=== PATIENT | male | born 1955 | race Caucasian/White ===

== ENCOUNTER 2020-05-04 01:10 | Outpatient (CLI) | payer BC, SELFPAY ==
[2020-05-04 18:02] LABS: SARS-CoV-2 RNA PCR Negative
== END 2020-05-04 01:11 | disposition home or self-care (01) ==
LOC: ANHCOVIDDT 01:11
PROVIDERS: PCP Family Medicine; Visit Provider Internal Medicine Gastroenterology
DX: Z01.812 Encounter for preprocedural laboratory examination (principal); Z20.828 Contact with and (suspected) exposure to other viral communicable diseases
CPT/HCPCS: 87635; C9803; U0003

== ENCOUNTER 2020-05-06 02:10 | Day surgery (SDC) | payer BC, SELFPAY ==
[2020-04-30 10:36] VITALS: BMI 24.6
[2020-05-06 08:54] VITALS: BP 123/77; PULSE 64; RESP 18; TEMP 36.6; O2SAT 100; BMI 24.0
--- NOTE | 2020-05-06 09:04 | P.HP_ITS ---
History of Present Illness History of Present Illness Consent: Risks, benefits, and alternatives have been discussed and questions answered. Patient agrees to proceed with procedure. Chief complaint: Family Hx Of Colon CA Narrative: Saturnino Oviedo is a 64 year old W male referred for screening colonoscopy secondary to a family history of colon polyps in his father and colon cancer in paternal grandfather. Patient last colonoscopy was 5 years ago no polyps were seen at that time. Patient is asymptomatic. He does have external hemorrhoids was evaluated Col[facility] Surgical Department at [facility] Past Medical History Medical History (Updated 05/06/20 @ 09:06 by Nate Cuellar MD) Left fibular fracture Surgical History Surgical History (Updated 05/06/20 @ 09:06 by Nate Cuellar MD) S/P right knee arthroscopy Family History Family History (Updated 04/03/14 @ 07:13 by DOCTOR UNKNOWN) Father Family history of malignant neoplasm Social History Social History (Updated 04/15/20 @ 13:59 by Bettye Fields) Smoking status: Never smoker Alcohol intake: current Drinks per week: 2 Alcohol use details: BEERS Substance use: never Substance use type: does not use Living arrangements: with family Gender identity (if verbalized by the patient): Male Spiritual care concerns: No Meds Home Medications and Allergies Home Medications Medication Instructions Recorded Confirmed Type hydrocortisone 2.5 % topical cream 1 applic RECTAL DAILY PRN #28 gm 04/29/20 05/06/20 Rx with perineal applicator Allergies Allergy/AdvReac Type Severity Reaction Status Date / Time No Known Allergies Allergy Verified 05/06/20 08:52 Vital Signs Vital Signs - 24 hr 05/06/20 08:54 Temperature 36.6 C Pulse Rate 64 Respiratory Rate 18 Blood Pressure 123/77 Pulse Oximetry 100 Exam Const: Orientation/consciousness: patient oriented x3 Resp: Auscultation: clear to auscultation bilaterally Cardio: Rate: regular rate Rhythm: regular rhythm Heart sounds: no murmurs GI: GI Palp: Yes Soft to palpation, No Tenderness to palpation present (GI), Yes No hepatosplenomegaly present and No Palpable mass present Auscultation: normal bowel sounds Neuro: General: patient oriented x3 and no focal motor deficits Extrem: General: no pedal edema Assessment and Plan Additional Plan screening colonoscopy in high risk patient
--- NOTE | 2020-05-06 09:06 | WPDANESEPPF ---
Anes - Initial Pre Proc Eval Procedure: Operation Date: 05/06/20 10:00 Proposed Procedures p Screening Colonoscopy - Nate Cuellar MD Date/Time: 05/06/20 09:06 Surgeon: Nate Cuellar MD Pre Op Diagnosis: Family Hx Of Colon CA Patient Data Age: 64 Gender: M Height: 6 ft 2 in Weight: 85.1 kg Last Vital Signs Temp 36.6 C 05/06/20 08:54 Pulse 64 05/06/20 08:54 Resp 18 05/06/20 08:54 BP 123/77 05/06/20 08:54 Pulse Ox 100 05/06/20 08:54 Allergies Allergy/AdvReac Type Severity Reaction Status Date / Time No Known Allergies Allergy Verified 05/06/20 08:52 Home Medications Medication Instructions Recorded Confirmed Type hydrocortisone 2.5 % topical cream 1 applic RECTAL DAILY PRN #28 gm 04/29/20 05/06/20 Rx with perineal applicator Patient hx anesthesia problems: none Family hx anesthesia problems: none PMFSH Family History Family History Father Family history of malignant neoplasm Social History Social History Smoking status: Never smoker Alcohol intake: current Drinks per week: 2 Alcohol use details: BEERS Substance use: never Substance use type: does not use Living arrangements: with family Gender identity (if verbalized by the patient): Male Spiritual care concerns: No Anes - Eval Final PreProcedure Day of Procedure 05/06/20 09:06 Patient weight: normal Heart: regular rate and rhythm Lungs: clear to auscultation Airway: Mallampati scale class 1 Neurological: alert and oriented Last oral intake: >/= 8 hours ASA classification: II Emergent: no Anesthetic plan: proceed Anesthesia type and monitoring: general GIVS and standard monitoring Informed Consent: The patient's anesthetic plan and its attendant risks and benefits were discussed with the patient/family/POA. Questions were solicited and answers provided to the satisfaction of the patient/family/POA.
[2020-05-06] MEDS: LACTATED RINGERS 1,000 ML 150 ML IV CONT (09:12)
[2020-05-06] MEDS: SIMETHICONE ORAL SUSPENSION 20 MG/0.3 ML 30 ML BOTTLE 0.6 ML IRRIGATION (10:22)
[2020-05-06 10:31] VITALS: BP 100/80; PULSE 62; RESP 11; O2SAT 99
[2020-05-06 10:41] VITALS: BP 104/70; PULSE 62; RESP 11; O2SAT 99
[2020-05-06 10:51] VITALS: BP 110/72; PULSE 54; RESP 11; O2SAT 98
== END 2020-05-06 11:15 | disposition home or self-care (01) ==
PROVIDERS: PCP Family Medicine; Visit Provider Internal Medicine Gastroenterology
PROC: 0DJD8ZZ Inspection of Lower Intestinal Tract, Via Natural or Artificial Opening Endoscopic (ICD-10-PCS; CPT 45378; principal; 2020-05-06 10:00)
DX: Z12.11 Encounter for screening for malignant neoplasm of colon (principal); K64.4 Residual hemorrhoidal skin tags; K64.2 Third degree hemorrhoids; Z80.0 Family history of malignant neoplasm of digestive organs; Z83.71 Family history of colonic polyps
CPT/HCPCS: 45378; J2704; J7120

== ENCOUNTER 2022-12-11 17:28 | Emergency (ER) | payer MEDICARE, BC, SELFPAY ==
[2022-12-11 17:29] VITALS: BP 126/92; PULSE 63; RESP 18; TEMP 36.6; O2SAT 97
--- NOTE | 2022-12-11 19:18 | ED.GENADULT ---
HPI - General Adult General Chief complaint: Unspecified Stated complaint: splinter below nail Time Seen by Provider: 12/11/22 18:40 History of Present Illness HPI narrative: 67-year-old male presents the emergency department for evaluation of a splinter under his right middle finger. Related Data Allergies Allergy/AdvReac Type Severity Reaction Status Date / Time No Known Allergies Allergy Verified 12/11/22 18:59 Review of Systems Review of Systems: All systems reviewed & are unremarkable except as noted in HPI and below PMFSH Past Medical History Medical History Erectile dysfunction Hemorrhoid Left fibular fracture Surgical History Surgical History S/P right knee arthroscopy Family History Family History Father Family history of malignant neoplasm Social History Social History Smoking status: Never smoker Alcohol intake: current Drinks per week: 2 Alcohol use details: BEERS Substance use: never Substance use type: does not use Living arrangements: with family Occupation/Education: retired Gender identity (if verbalized by the patient): Male Spiritual care concerns: No Exam Narrative: APPEARANCE: Well appearing, no pain, no distress, well-nourished. HEAD: normocephalic, atraumatic. EYES: PERRLA/EOMI, conjunctivae clear. NOSE: Normal no drainage NECK: Supple. No adenopathy, no masses. RESPIRATORY: Airway patent, respirations nonlabored. Clear to auscultation bilaterally, no rales, rhonchi, wheezing. CARDIOVASCULAR: Regular rate and rhythm without murmurs rubs or gallops. ABDOMINAL: Soft, nontender, nondistended, normal bowel sounds MUSCULOSKELETAL: Moves all extremities. Strength/ROM intact, No edema, No calf tenderness. NEURO: Alert. Cranial nerves II through XII intact. Grossly intact SKIN: Warm, dry. Normal Color. Splinter under right middle finger Course Course Emergency Course: Finger was anesthetized and splinter was removed and described in the procedure note. Vital Signs Vital signs: Vital Signs Temperature 97.8 F 12/11/22 17:29 Pulse Rate 63 12/11/22 17:29 Respiratory Rate 18 12/11/22 17:29 Blood Pressure 126/92 H 12/11/22 17:29 Pulse Oximetry 97 12/11/22 17:29 Oxygen Delivery Room Air 12/11/22 17:29 Temperature 97.8 F 12/11/22 17:29 Pulse Rate 63 12/11/22 17:29 Respiratory Rate 18 12/11/22 17:29 Blood Pressure 126/92 H 12/11/22 17:29 Pulse Oximetry 97 12/11/22 17:29 Oxygen Delivery Room Air 12/11/22 17:29 Procedures Foreign Body Removal Foreign Body #1: Time Out Performed: yes Site: right and hand Description of foreign body: other (splinter) Technique: manual removal, removal with forceps and incision made to facilitate removal Confirmed by:: direct visualization Complications: none Post-procedure exam: awake, alert Neurovascular: normal distal pulse Foreign Body Removal Narrative: Area was anesthetized with 1 mL of 1% lidocaine, fingernail was trimmed to approach the splinter and splinter was removed using splinter forceps. Patient tolerated procedure with no complications Medical Decision Making Vital Signs Vital Signs: Vital Signs Temperature 97.8 F 12/11/22 17:29 Pulse Rate 63 12/11/22 17:29 Respiratory Rate 18 12/11/22 17:29 Blood Pressure 126/92 H 12/11/22 17:29 Pulse Oximetry 97 12/11/22 17:29 Oxygen Delivery Room Air 12/11/22 17:29 Temperature 97.8 F 12/11/22 17:29 Pulse Rate 63 12/11/22 17:29 Respiratory Rate 18 12/11/22 17:29 Blood Pressure 126/92 H 12/11/22 17:29 Pulse Oximetry 97 12/11/22 17:29 Oxygen Delivery Room Air 12/11/22 17:29 Discharge Plan Discharge Clinical Imp
[2022-12-11] MEDS: TETANUS,DIPHTHERIA,AC PERTUSSIS ADULT (0.5 ML) BOOSTRIX IM (19:42)
[2022-12-11] MEDS: CEPHALEXIN 250 MG CAPSULE PO (19:43)
== END 2022-12-11 19:54 | disposition home or self-care (01) ==
PROVIDERS: Emergency Provider Emergency Medicine; PCP Family Medicine
DX: S60.452A Superficial foreign body of right middle finger, initial encounter (principal); Z23 Encounter for immunization; W45.8XXA Other foreign body or object entering through skin, initial encounter
CPT/HCPCS: 10120; 90471; 90715; 99283; A9270

== ENCOUNTER 2023-08-09 08:15 | Outpatient (RCR) | payer MEDICARE, BC, SELFPAY ==
--- NOTE | 2023-07-05 08:25 | PTOPEVAL1 ---
Assessment and note entered by Leander Le Evaluation Information Assessment Status Evaluation Diagnosis left shoulder pain Onset 04/06/23 Subjective Information Pt. reports he was hiking in March with a heavy backpack and began noticing pain described in the left shoulder blade. He reports pain is worsened at night while relaxing or with driving. He reports that he does have tingling that develops as well. He notices more of the tingling in the fingertips of both hands. He reports that sitting up at night will alleviate the tingling. 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 He reports that he has not had xray or MRI of the shoulder. He does notice his pain with moving his head to the left and looking up. He reports that his goal is to reduce his shoulder pain. Reported Pain Level Pain Score 1: Self Report Assessment PT Clinical Summary Pt. is a 67 year old male who enters the clinic with left shoulder pain. Pt. objective findings are consistent with cervical nerve root impingement on this date. He currently presents with impaired left cervical rotation and lateral flexion, impaired postural awareness, impaired left u.e. strength and pain. Continued skilled PT is indicated in order to improve these areas to allow for improved comfort with IADL performance. Plan of Care Interventions Electrical Stimulation,Hot Pack/Cold Pack,Manual Therapy,Mechanical Traction,Neuro Re-education, Patient/Caregiver Educati,Therapeutic Activities, Therapeutic Exercise PT Services Indicated Yes Treatment Frequency and 2x/week x 10 visits Duration These treatments will address the objective and functional deficits as defined above. The patient will be advanced safely and appropriately in order for the patient to progress towards his/her prior level of function. Additional exercises will be introduced and as well as a comprehensive home exercise program upon discharge, if needed, ?to ensure carryover of functional gains achieved in the clinic. This treatment plan has been reviewed and agreement upon by the patient.
--- NOTE | 2023-07-05 08:25 | OPREHPOC ---
Outpatient Therapy Plan of Care This is a Multidisciplinary Plan of Care that may contain components documented by all disciplines (PT, OT, and ST.) PT Problem 1 PT Problem #1 Knowledge Deficit PT Goal 1 Goal Independent with a HEP focusing on postural awareness and strength Target Visit 2 PT Problem 2 PT Problem #2 Pain PT Goal 1 Goal Pt. will provide pain reports of 2/10 at worst with performance of all IADL's. Target Visit 10 PT Problem 3 PT Problem #3 Impaired Range of Motion PT Goal 1 Goal Pt. will present with 75 degrees left rotation and 40 degrees left lateral flexion at the c-spine Target Visit 10 PT Problem 4 PT Problem #4 Impaired Strength PT Goal 1 Goal Pt. will present with 4+/5 left tricep strength to improve function with overhead activities. Target Visit 10 PT Problem 5 PT Problem #5 Impaired Functional Mobil PT Goal 1 Goal Pt. will demonstrate less than 5% limitation on the Quick DASH indicating significant funcitonal improvement. Target Visit 10
--- NOTE | 2023-08-09 09:20 | PTOPEVAL1 ---
Assessment and note entered by Leander Le Evaluation Information Assessment Status Discharge Diagnosis left shoulder pain Onset 04/06/23 Subjective Information Pt. reports that the left shoulder pain is much less intense. He has notices some developed numbness in the first 4 fingers of the left hand, which has him concerned. He states that he is happy with his progress, but will meet with his doctor regarding the numbness. He will continue with his HEP at this time. Reported Pain Level Pain Score 1: Self Report Assessment PT Clinical Summary Pt. demonstrates significant improvement in his Quick DASH score. Pt. pain reports are minimal at this time and improvements are noted in strength and ROM. Despite these improvement some radicular symptoms remain in the left u.e. At this time recommend that the pt. return to his doctor to discuss his symptoms and may consider imaging of the c-spine. Plan of Care PT Services Indicated Treatment Frequency and D/C from PT to a HEP and follow up with Bob Carroll regarding cervical radiculopathy. These treatments will address the objective and functional deficits as defined above. The patient will be advanced safely and appropriately in order for the patient to progress towards his/her prior level of function. Additional exercises will be introduced and as well as a comprehensive home exercise program upon discharge, if needed, ?to ensure carryover of functional gains achieved in the clinic. This treatment plan has been reviewed and agreement upon by the patient.
== END 2023-08-09 12:36 | disposition home or self-care (01) ==
LOC: ANHPT 08:15
PROVIDERS: PCP Family Medicine; Visit Provider Family Medicine
DX: M25.512 Pain in left shoulder (principal)
CPT/HCPCS: 97012; 97014; 97110; 97140; 97161; 97530; G0283

== ENCOUNTER 2024-05-13 12:19 | Outpatient (CLI) | payer MEDICARE, BC, SELFPAY ==
--- NOTE | ~2024-05-13 | XR_ITS ---
Left Knee Technique: AP, lateral, and sunrise views were obtained. Clinical History: Pain Findings: No fracture or dislocation is seen. There is medial compartment narrowing with mild tricomp artmental osteophyte formation. Soft tissues are unremarkable. No joint effusion is seen. Impression: Degenerative change, as above. Reviewed, dictated and finalized at location M. Impression: Degenerative change, as above.
--- NOTE | ~2024-05-13 | XR_ITS ---
Right Knee Technique: AP, lateral, and sunrise views were obtained. Clinical History: Pain Findings: No fracture or dislocation is seen. There is mild medial compartment narrowing with mild tr icompartmental osteophyte formation. Soft tissues are unremarkable. No joint effusion is seen. Impression: Degenerative change, as above. Reviewed, dictated and finalized at location M. Impression: Degenerative change, as above.
== END 2024-05-13 12:20 | disposition home or self-care (01) ==
LOC: MICIMG 12:21
PROVIDERS: PCP Family Medicine; Visit Provider Family Medicine
DX: M25.562 Pain in left knee (principal); M25.561 Pain in right knee
CPT/HCPCS: 73562

== ENCOUNTER 2024-06-16 13:04 | Emergency (ER) | payer MEDICARE, BC, SELFPAY ==
--- NOTE | ~2024-06-16 | XR_ITS ---
EXAM: XR knee RT min 4V DATE: 06/16/2024 14:01 HISTORY: LATERAL PAIN, KNEE STUCK BENT, CANT STRAIGHTEN . COMPARISON: 05/13/2024. FINDINGS: Normal mineralization. No fracture or dislocation. No lytic or blastic lesion. Moderate tr icompartmental osteoarthritis. No erosion or periosteal change. Anterior soft tissue swelling. Obscur ation of the patellar tendon borders. IMPRESSION: No acute osseous finding. Anterior soft tissue swelling with possible patellar tendon pat hology. Reviewed, dictated and finalized at location K. RWORKS CHIEF ENGINEER IMPRESSION: No acute osseous finding. Anterior soft tissue swelling with possib le patellar tendon pathology.
[2024-06-16 13:10] VITALS: BP 130/74; PULSE 76; RESP 16; TEMP 36.4; O2SAT 100
--- NOTE | 2024-06-16 14:33 | ED.GENADULT ---
HPI - General Adult General Chief complaint: Extremity Injury, Lower Stated complaint: right knee injury Time Seen by Provider: 06/16/24 13:48 History of Present Illness HPI narrative: 68-year-old male presenting to the emergency department for evaluation for right knee pain. Patient states he had been standing on his left leg with his right knee up on a step changing a light and when he went to bring his right leg back down he had intense pain in the right knee. Patient described lateral right knee pain. Patient had taken meloxicam earlier in the day and did ice the knee after the pain. Patient states initially he was having pain with flexion and extension of the knee. Patient states pain has since improved and he was able to fully extend the during my examination. Patient states pain has significantly improved and patient was able to weightbear. Related Data Allergies Allergy/AdvReac Type Severity Reaction Status Date / Time No Known Allergies Allergy Verified 06/16/24 13:04 Review of Systems Review of Systems: All systems reviewed & are unremarkable except as noted in HPI and below PMFSH Past Medical History Medical History Erectile dysfunction Hemorrhoid History of hip fracture (~03/04/16) Inferior & Superior Pubic Rami Fx's Left fibular fracture Surgical History Surgical History S/P right knee arthroscopy Family History Family History Father Family history of malignant neoplasm Social History Social History Smoking status: Never smoker Alcohol intake: current Drinks per week: 2 Alcohol use details: BEERS Substance use: never Substance use type: does not use Living arrangements: with family Occupation/Education: retired Gender identity (if verbalized by the patient): Male Spiritual care concerns: No Exam Narrative: APPEARANCE: Well appearing, no pain, no distress, well-nourished. HEAD: normocephalic, atraumatic. EYES: PERRLA/EOMI, conjunctivae clear. NOSE: Normal no drainage EARS:TMS clear with good light reflex. THROAT: Pharynx clear, no exudate. NECK: Supple. No adenopathy, no masses. RESPIRATORY: Airway patent, respirations nonlabored. Clear to auscultation bilaterally, no rales, rhonchi, wheezing. CARDIOVASCULAR: Regular rate and rhythm without murmurs rubs or gallops. ABDOMINAL: Soft, nontender, nondistended, normal bowel sounds MUSCULOSKELETAL: Lateral right knee tenderness to palpation without effusion or ecchymosis or deformity NEURO: Alert. Cranial nerves II through XII intact. Good gait. Good coordination SKIN: Warm, dry. Normal Color Course Vital Signs Vital signs: Vital Signs Temperature 97.5 F L 06/16/24 13:10 Pulse Rate 76 06/16/24 13:10 Respiratory Rate 16 06/16/24 13:10 Blood Pressure 130/74 06/16/24 13:10 Pulse Oximetry 100 06/16/24 13:10 Oxygen Delivery Room Air 06/16/24 13:10 Temperature 97.5 F L 06/16/24 13:10 Pulse Rate 76 06/16/24 13:10 Respiratory Rate 16 06/16/24 13:10 Blood Pressure 130/74 06/16/24 13:10 Pulse Oximetry 100 06/16/24 13:10 Oxygen Delivery Room Air 06/16/24 13:10 Medical Decision Making MDM Narrative Medical decision making narrative: 68-year-old male present to the emergency department for evaluation for right knee pain x-ray was negative for acute fracture dislocation. Patient has tenderness to the anterior right lateral aspect of the right knee with no ecchymosis, effusion or deformity. Patient does have follow-up with Dr. Terry Differential Diagnosis Differential Diagnosis: Knee fracture, knee contusion, patellar tendon laceration, patellar tendon strain, internal derangement Vital Signs Vital Signs: Vital Signs Temperature 97.5 F L 06/16/24 13:10 Pulse Rate 76 06/16/24 13:10 Respiratory Rate 16 06/16/24 13:10 Blood Pressure 130/74 06/16/24 13:10 Pulse Oximetry 100 06/16/24 13:10 Oxygen Delivery Room Air 06/16/24 13:10 Temperature 97.5 F L 06/16/24 13:10 Pulse Rate 76 06/16/24 13:10 Respiratory Rate 16 06/16/24 13:10 Blood Pressure 130/74 06/16/24 13:10 Pulse Oximetry 100 06/16/24 13:10 Oxygen Delivery Room Air 06/16/24 13:10 Imaging Data Radiologist's impression: Impressions Knee X-Ray 06/16/24 14:04 IMPRESSION: No acute osseous finding. Anterior soft tissue swelling with possible patellar tendon pathology. Discharge Plan Discharge Clinical Impression: Acute pain of right knee Patient Disposition: Home, Self-Care Condition: Stable Instructions: Antibiotic Form, Crutch Instructions (ED), Knee Pain (ED) Additional Instructions: Tylenol and anti-inflammatories for pain control. Maurilio wrap for comfort, crutches for limited weight-bearing. Continue to have close follow-up with Orthopedics. If you have any worsening symptoms then please call or return to the emergency department. Prescriptions: No Action sildenafil [Viagra] 100 mg tablet 100 mg PO DAILY PRN (Reason: sexual activity) Qty: 30 2RF Rx Instructions: administer 30 minutes to 4 hours before activity meloxicam 15 mg tablet 15 mg PO DAILY Qty: 90 0RF Rx Instructions: Cut pill in half. Take 1/2 in morning and 1/2 at night. Take with food. Stop if stomach upset. Follow-up/Referrals: Chan Quintero MD [Primary Care Provider] -
== END 2024-06-16 14:49 | disposition home or self-care (01) ==
PROVIDERS: Emergency Provider Emergency Medicine; PCP Family Medicine
DX: M25.561 Pain in right knee (principal)
CPT/HCPCS: 73564; 99283

== ENCOUNTER 2024-09-17 14:45 | Outpatient (CLI) | payer MEDICARE, BC, SELFPAY ==
--- NOTE | ~2024-09-17 | XR_ITS ---
EXAMINATION: XR chest 2V 09/17/2024 15:06 INDICATION: Cough for one week PROCEDURE: 2 view chest COMPARISON: 04/02/2018 FINDINGS: The lungs are clear. The cardiomediastinal silhouette is within normal limits. There are no pleural effusions. There is no pneumothorax suspected. IMPRESSION: 1: NO ACUTE CARDIOPULMONARY DISEASE. Reviewed, dictated and finalized at location B. CHAR PULLER
--- OUTSIDE RECORDS SUMMARY | 2024-09-17 15:29 | XMS_ITS | Clinical Summary ---
Author Organization [facility] Address [address] [place] [address] Phone Care Team Providers Care Ingot Stripper Name Role Phone Chan Quintero MD Primary Care Provider Allergies No known active allergies Medications ibuprofen (ADVIL) 100 mg Tablet, Chewable Take by mouth. Active Active Problems No known active problems Family History Medical History Relation Name Comments Colon Cancer Paternal Grandfather late 40 's; of colon cancer. Relation Name Status Comments Paternal Grandfather Social History Tobacco Use Types Packs/Day Years Used Date Smoking Tobacco: Never Smokeless Tobacco: Never Tobacco Cessation:Counseling Given: Not Answered Sex and Gender Information Value Date Recorded Sex Assigned at Not on file Legal Sex Male 3:50 PM CDT Gender Identity Not on file Sexual Orientation Not on file Last Filed Vital Signs Vital Sign Reading Time Taken Comments Blood Pressure 114/62 06/16/2023 12:15 PM DOUGH MIXER Pulse 61 08/03/2020 12:59 PM DOUGH MIXER Temperature - - Respiratory Rate - - Oxygen Saturation - - Inhaled Oxygen Concentration - - Weight 86.2 kg (190 lb) 06/16/2023 12:15 PM DOUGH MIXER Height 188 cm (6' 2 ) 06/16/2023 12:15 PM DOUGH MIXER Body Mass Index 24.39 06/16/2023 12:15 PM DOUGH MIXER Plan of Treatment Health Maintenance Due Date Last Done Comments DTAP/TDAP/TD VACCINES (1 - Tdap) 11/09/1975 COLORECTAL SCREENING 2001 Colorectal Cancer Screening 2001 FIT-DNA Q 3 years 2001 FIT/FOBT Q 1 year 2001 Flex Sig/CT Colonography Q 5 years 2001 PNEUMOCOCCAL VACCINE 65+ YEARS (1 of 1 - PCV) 11/09/19 07 ZOSTER VACCINE (1 of 2) 2006 INFLUENZA VACCINE (#1) 2024 RSV VACCINE (60+ or ) (1 - 1-dose 75+ series) 11/09/2031 Insurance [facility] MEDICARE PART A AND B Care Teams Ingot Stripper Relationship Specialty Start Date End Date Chan Quintero MD [address] [facility] [address] [place] [id number] PCP - General Family Practice 06/19/20
== END 2024-09-17 14:46 | disposition home or self-care (01) ==
PROVIDERS: PCP Family Medicine; Visit Provider Physician Assistant
DX: R05.9 Cough, unspecified (principal)
CPT/HCPCS: 71046

== ENCOUNTER 2025-02-10 10:11 | Outpatient (CLI) | payer MEDICARE, BC, SELFPAY ==
--- NOTE | ~2025-02-10 | CT_ITS ---
EXAMINATION: CT_LERTCWO_CT DATE: 02/10/2025 10:43 INDICATION: Right knee osteoarthritis for preoperative planning TECHNIQUE: High resolution computed tomography (CT) of the right lower extremity from the hip through the ankle was performed without intravenous contrast. Additional sagittal and coronal reconstruction s were performed. Automated exposure control and iterative reconstruction technique were employed. Th e dose-length product was 2007.87 mGy-cm. COMPARISON: Knee radiographs dated 11/20/2024 FINDINGS: Bone alignment is normal. No fracture. Tricompartmental osteoarthritis of the right knee, severe at t he medial compartment where there is vacuum phenomena the articular surfaces. Small right knee joint effusion. Mild osteoarthritis at the right hip with prominent subarticular cystlike change s along the superolateral margin of the acetabulum. There are couple bone islands at the right femora l head and at the basicervical femoral neck. Mild osteoarthritis at the right ankle and first metatar sophalangeal and several tarsal metatarsal joints. Additional small bone island at the medial cuneifo rm. Bladder and visualized portions of bowels in the pelvis are unremarkable. Multiple phleboliths. P rostatomegaly. No free fluid in the pelvis. No pathologically enlarged pelvic or inguinal lymphadenop athy. IMPRESSION: 1. Severe medial compartment predominant tricompartmental osteoarthritis at the right knee. Reviewed, dictated and finalized at location A.
--- OUTSIDE RECORDS SUMMARY | 2025-02-10 10:21 | XMS_ITS | Clinical Summary ---
Author Organization [facility] Address [address] [place] [address] Phone Care Team Providers Care Finance Mgr Name Role Phone Chan Quintero MD Primary Care Provider [phone] Allergies No known active allergies Medications ibuprofen [...] Comments Blood Pressure 114/62 06/16/2023 12:15 PM FOUNDER / CEO Pulse 61 08/03/2020 12:59 PM FOUNDER / CEO Temperature - - Respiratory Rate - - Oxygen Saturation - - Inhaled Oxygen Concentration - - Weight 86.2 kg (190 lb) 06/16/2023 12:15 PM FOUNDER / CEO Height 188 cm (6' 2) 06/16/2023 12:15 PM FOUNDER / CEO Body Mass Index 24.39 06/16/2023 12:15 PM FOUNDER / CEO Plan of Treatment Health Maintenance Due Date Last Done Comments DTAP/TDAP/TD VACCINES (1 - Tdap) 11/09/1975 COLORECTAL SCREENING 2001 Colorectal Cancer Screening 2001 FIT-DNA Q 3 years 2001 FIT/FOBT Q 1 year 2001 Flex Sig/CT Colonography Q 5 years 2001 PNEUMOCOCCAL VACCINE 50+ YEARS (1 of 1 - PCV) 11/09/19 07 ZOSTER VACCINE (1 of 2) 2006 INFLUENZA VACCINE (#1) 2025 RSV VACCINE (60+ or ) (1 - 1-dose 75+ series) 11/09/2031 Insurance [facility] MEDICARE PART A AND B Care Teams Finance Mgr Relationship Specialty Start Date End Date Chan Quintero MD [address] [facility] [address] [place] [address] PCP - General Family Practice 06/19/20
== END 2025-02-10 10:12 | disposition home or self-care (01) ==
PROVIDERS: PCP Family Medicine; Visit Provider Orthopaedic Surgery
DX: Z01.818 Encounter for other preprocedural examination (principal); M17.11 Unilateral primary osteoarthritis, right knee
CPT/HCPCS: 73700

== ENCOUNTER 2025-03-18 13:08 | Outpatient (CLI) | payer MEDICARE, BC, SELFPAY ==
--- NOTE | ~2025-03-18 | XR_ITS ---
XR knee LT min 4V 03/18/2025 13:39 Indication: Osteoarthritis of the knee Procedure: 4 views left knee Comparison: 05/13/2024 Findings: Moderate tricompartment osteoarthritis. Small joint effusion. No fracture or traumatic janny lignment. Prominent tibial tuberosity. Impression: 1: Moderate tricompartment osteoarthritis of the left knee. Reviewed, dictated and finalized at location A. Impression: 1: Moderate tricompartment osteoarthritis of the left knee.
--- NOTE | ~2025-03-18 | XR_ITS ---
XR hip LT 2V w AP pelvis 03/18/2025 13:39 Indication: Left hip pain Procedure: AP pelvis and 2 views left hip Comparison: 03/04/2016 Findings: Hips are symmetric. Pelvic rings intact. No fracture, subluxation or dislocation. Impression: 1: No significant bone or joint abnormality. Reviewed, dictated and finalized at location A. Impression: 1: No significant bone or joint abnormality.
--- OUTSIDE RECORDS SUMMARY | 2025-03-18 13:33 | XMS_ITS | Clinical Summary ---
Author Organization [facility] Address [address] [place] [address] Phone Care Team Providers Care Strap Folding Machine Operator Name Role Phone Chan Quintero MD Primary Care Provider [phone] Allergies No known active allergies Medications ibuprofen [...] Comments Blood Pressure 114/62 06/16/2023 12:15 PM MIXER SLAGMAN Pulse 61 08/03/2020 12:59 PM MIXER SLAGMAN Temperature - - Respiratory Rate - - Oxygen Saturation - - Inhaled Oxygen Concentration - - Weight 86.2 kg (190 lb) 06/16/2023 12:15 PM MIXER SLAGMAN Height 188 cm (6' 2) 06/16/2023 12:15 PM MIXER SLAGMAN Body Mass Index 24.39 06/16/2023 12:15 PM MIXER SLAGMAN Plan of Treatment Health Maintenance Due Date [...] (1 - 1-dose 75+ series) 11/09/[address] [facility] MEDICARE PART A AND B Care Teams Strap Folding Machine Operator Relationship Specialty Start Date End Date Chan Quintero MD [address] [facility] [address] [place] [address] PCP - General Family Practice 06/19/20
== END 2025-03-18 13:09 | disposition home or self-care (01) ==
LOC: ANHIMG 13:15
PROVIDERS: PCP Family Medicine; Visit Provider Orthopaedic Surgery
DX: M17.12 Unilateral primary osteoarthritis, left knee (principal); M25.552 Pain in left hip
CPT/HCPCS: 73502; 73564

== ENCOUNTER 2025-04-10 13:17 | Outpatient (CLI) | payer MEDICARE, BC, SELFPAY ==
--- OUTSIDE RECORDS SUMMARY | 2025-04-10 12:21 | XMS_ITS | Clinical Summary ---
Author Organization [facility] Address [address] [place] [address] Phone Care Team Providers Care Appraiser Personal Property Name Role Phone Chan Quintero MD Primary Care Provider [phone] Allergies No known active allergies Medications ibuprofen [...] Comments Blood Pressure 114/62 06/16/2023 12:15 PM DEBATE DIRECTOR Pulse 61 08/03/2020 12:59 PM DEBATE DIRECTOR Temperature - - Respiratory Rate - - Oxygen Saturation - - Inhaled Oxygen Concentration - - Weight 86.2 kg (190 lb) 06/16/2023 12:15 PM DEBATE DIRECTOR Height 188 cm (6' 2) 06/16/2023 12:15 PM DEBATE DIRECTOR Body Mass Index 24.39 06/16/2023 12:15 PM DEBATE DIRECTOR Plan of Treatment Health Maintenance Due Date [...] (1 - 1-dose 75+ series) 11/09/2031 Insurance [facility] MEDICARE PART A AND B Care Teams Appraiser Personal Property Relationship Specialty Start Date End Date Chan Quintero MD [address] [facility] [address] [place] [address] PCP - General Family Practice 06/19/20
--- NOTE | 2025-04-10 12:23 | ECG_ITS ---
Test Date: 2025-04-10 12:35:00 Measurements Intervals [place] Rate: 57 P: 47 OR: 208 QRS: -55 QRSD: 114 T: -11 QT: 414 QTc: 406 Interpretive Statements SINUS BRADYCARDIA LEFT AXIS DEVIATION [QRS AXIS < -30] NONSPECIFIC ST-T WAVE CHANGES No previous ECG available for comparison Electronically Signed On 04-10-2025 12:49:16 CDT by Luis Caicedo M.D.
--- OUTSIDE RECORDS SUMMARY | 2025-04-10 13:20 | XMS_ITS | Clinical Summary ---
Author Organization [facility] Address [address] [place] [address] Phone Care Team Providers Care School Bus Technician Name Role Phone Chan Quintero MD Primary Care Provider [phone] Allergies No known active allergies Medications ibuprofen [...] Comments Blood Pressure 114/62 06/16/2023 12:15 PM STEM ASSEMBLER Pulse 61 08/03/2020 12:59 PM STEM ASSEMBLER Temperature - - Respiratory Rate - - Oxygen Saturation - - Inhaled Oxygen Concentration - - Weight 86.2 kg (190 lb) 06/16/2023 12:15 PM STEM ASSEMBLER Height 188 cm (6' 2) 06/16/2023 12:15 PM STEM ASSEMBLER Body Mass Index 24.39 06/16/2023 12:15 PM STEM ASSEMBLER Plan of Treatment Health Maintenance Due Date [...] (1 - 1-dose 75+ series) 11/09/2031 Insurance [facility] MEDICARE PART A AND B Care Teams School Bus Technician Relationship Specialty Start Date End Date Chan Quintero MD [address] [facility] [address] [place] [address] PCP - General Family Practice 06/19/20
[2025-04-10 13:46] LABS: Hematocrit 42.9 % (42.0-52.0); Hemoglobin 14.0 g/dL (14.0-18.0)
[2025-04-10 14:13] LABS: Albumin Level 4.1 g/dL (3.5-5.1); Estimated Glomerular Filt Rate > 60
== END 2025-04-10 13:18 | disposition home or self-care (01) ==
PROVIDERS: PCP Family Medicine; Visit Provider Orthopaedic Surgery
DX: M17.11 Unilateral primary osteoarthritis, right knee (principal); Z01.818 Encounter for other preprocedural examination
CPT/HCPCS: 36415; 82040; 82565; 85014; 85018; 93005

== ENCOUNTER 2025-04-17 15:33 | Outpatient (CLI) | payer MEDICARE, BC, SELFPAY ==
--- NOTE | ~2025-04-17 | CT_ITS ---
EXAMINATION: CT_LELTCWO_CT DATE: 04/17/2025 16:07 INDICATION: Left knee osteoarthritis. TECHNIQUE: Computed tomography (CT) of the left lower limb was performed without intravenous contrast. Automated exposure control and iterative reconstruction technique were employed. The dose-length product was 4431.99 mGy-cm. COMPARISON: Left knee radiographs 03/18/2025 FINDINGS: Alignment is normal. No fracture. There is mild left hip osteoarthritis. Left knee demonstrates severe osteoarthritis of the medial compartment and moderate osteoarthritis of the lateral and patellofemoral compartments. There is a moderate-sized knee joint effusion. There is a moderate-sized Pozo's cyst with loose bodies. There is plate and screw fixation of distal fibula. There is a syndesmotic screw in distal tibia and fibula. IMPRESSION: 1. Severe left knee osteoarthritis. 2. Moderate-sized left knee joint effusion. 3. Moderate-sized Pozo's cyst with loose bodies. Reviewed, dictated and finalized at location E.
--- OUTSIDE RECORDS SUMMARY | 2025-04-17 16:50 | XMS_ITS | Clinical Summary ---
Author Organization [facility] Address [address] [place] [address] Phone Care Team Providers Care Pest Control Worker Helper Name Role Phone Chan Quintero MD Primary Care Provider [phone] Allergies No known active allergies Medications ibuprofen [...] Comments Blood Pressure 114/62 06/16/2023 12:15 PM BUFFER MACHINE Pulse 61 08/03/2020 12:59 PM BUFFER MACHINE Temperature - - Respiratory Rate - - Oxygen Saturation - - Inhaled Oxygen Concentration - - Weight 86.2 kg (190 lb) 06/16/2023 12:15 PM BUFFER MACHINE Height 188 cm (6' 2) 06/16/2023 12:15 PM BUFFER MACHINE Body Mass Index 24.39 06/16/2023 12:15 PM BUFFER MACHINE Plan of Treatment Health Maintenance Due Date [...] (1 - 1-dose 75+ series) 11/09/2031 Insurance [facility] MEDICARE PART A AND B Care Teams Pest Control Worker Helper Relationship Specialty Start Date End Date Chan Quintero MD [address] [facility] [address] [place] [address] PCP - General Family Practice 06/19/20
== END 2025-04-17 15:34 | disposition home or self-care (01) ==
LOC: ANHIMG 15:37
PROVIDERS: PCP Family Medicine; Visit Provider Orthopaedic Surgery
DX: M17.12 Unilateral primary osteoarthritis, left knee (principal); M25.462 Effusion, left knee; M71.22 Synovial cyst of popliteal space [Baker], left knee; M23.42 Loose body in knee, left knee
CPT/HCPCS: 73700

== ENCOUNTER 2025-07-14 08:33 | Outpatient (CLI) | payer MEDICARE, BC, SELFPAY ==
[2025-07-14 09:55] LABS: Hematocrit 44.5 % (42.0-52.0); Hemoglobin 14.6 g/dL (14.0-18.0); Immature Granulocyte Percent A 0.2 % (0-0.5); Lymphocytes Absolute Auto 1.01 K/mm3 (0.9-3.2); Mean Corpuscular HGB Conc 32.8 g/dl (32-36); Mean Corpuscular Hemoglobin 29.7 pg (26-34); Mean Corpuscular Volume 90.4 fl (80-100); Nucleated Red Blood Cells Absolute Auto 0.000 K/mm3 (0.0-0.012); Nucleated Red Blood Cells Perc 0.0 % (0.0-0.2); Platelet Count Result 195 k/mm3 (150-375); Red Blood Count 4.92 M/mm3 (4.6-6.20); White Blood Count 4.6 K/mm3 (4.5-10.0)
[2025-07-14 10:05] LABS: Hemoglobin A1C 5.8 % (<5.7)
[2025-07-14 10:18] LABS: Albumin Level 4.1 g/dL (3.5-5.1); Estimated Glomerular Filt Rate > 60; Glucose 89 mg/dL (65-110)
[2025-07-14 11:05] LABS: MRSA (PCR) NOT DETECTED (NOT DETECTE)
== END 2025-07-14 08:34 | disposition home or self-care (01) ==
LOC: ANHSURGERY 08:34
PROVIDERS: PCP Family Medicine; Visit Provider Orthopaedic Surgery
DX: M17.12 Unilateral primary osteoarthritis, left knee (principal); Z01.818 Encounter for other preprocedural examination
CPT/HCPCS: 80307; 82040; 82565; 82947; 83036; 85025; 87641